=== PATIENT | female | born 1945 | race Caucasian/White ===

== ENCOUNTER → 2020-07-16 12:16 | Outpatient (CLI) | payer OTHER, SELFPAY ==
--- NOTE | ~2020-07-16 | MM_ITS ---
EXAMINATION: MM screening leonides BI w keith HISTORY: Screening mammogram TECHNIQUE: Craniocaudal and mediolateral oblique 3-D tomosynthesis images were obtained and synthetic 2-D images were generated. CAD analysis was submitted and interpreted. COMPARISON: 11/25/2018, 08/11/2016, 01/03/2014 bilateral digital screening mammogram examinations BREAST PARENCHYMAL COMPOSITION: There are scattered areas of fibroglandular density. FINDINGS: There is no evidence of suspicious mass, calcification, or architectural distortion to sugg est malignancy in either breast. There has been no suspicious interval change. IMPRESSION: 1. No mammographic evidence of malignancy. 2. Recommend routine screening mammography in one year. BI-RADS Category 1: Negative Reviewed, dictated and finalized at location A.
--- NOTE | ~2020-07-16 | DEXA_ITS ---
Bone Density Report Name: Mandi De La Torre Age: 74 Sex: Female Ethnicity: White Date of : 1945 Indication: postmenopausal; screening for osteoporosis; Referring Provider: Roslyn Polk Study: Bone densitometry was performed. Exam Date: July 16, 2020 Accession number: [id number] Bone Density: Region BMD T-score Z-score Classification AP Spine (L1-L4) 0.793 -2.3 0.2 Osteopenia Femoral Neck (Left) 0.530 -2.9 -0.7 Osteoporosis Total Hip (Left) 0.638 -2.5 -0.6 Osteoporosis Femoral Neck (Right) 0.548 -2.7 -0.6 Osteoporosis Total Hip (Right) 0.594 -2.9 -1.0 Osteoporosis Total Hip Mean 0.616 -2.7 -0.8 Osteoporosis World Health Organization criteria for BMD impression classify patients as: Normal (T-score at or above -1.0), Osteopenia (T-score between -1.0 and -2.5), or Osteoporosis (T-score at or below -2.5). 10-year Fracture Risk: FRAX not reported because: Some T-score for Spine Total or Hip Total or Femoral Neck at or below -2.5 Clinical Information Provided by Patient: Has used the following medications: Vitamin D, Calcium Patient maximum height was 64 Menopause Age: 50 No regular weight bearing exercise Does not regularly consume dairy products Drinks caffeinated beverages Onset of menses at age 12 Number of children 2 Impression: The patient has osteoporosis, based on the Right Total Hip T-score. Discussion: INCREASED RISK OF FRACTURE. BONE DENSITY IS UNDESIRABLY LOW AT ONE OR MORE SKELETAL SITES, CONSISTENT WITH POSTMENOPAUSAL OSTEOPOROSIS. This patient's lowest T-score meets the World Health Organization's (WHO) criteria for osteoporosis at one or more sites (T-score -2.5 or below). In untreated patients, the risk of osteoporotic fracture increases approximately two-fold for each 1.0 SD decrease in T-score. Low bone density is not the only risk factor for fracture; also consider factors such as patient's age, frailty or poor health, risk of falling, risk of injury, previous osteoporotic fracture, family history of osteoporosis, cigarette smoking, low body weight, etc. Not everyone with low bone mineral density has osteoporosis; osteomalacia and other metabolic bone disorders should also be considered. Patients who have osteoporosis should be evaluated for specific diseases and conditions (secondary causes) that may cause or contribute to bone loss. The [place] [employer]ocrinologists (AACE) and National Osteoporosis Foundation (NOF) recommend pharmacologic intervention for all postmenopausal women whose T-score is in this range. The patient should follow a healthful lifestyle (good nutrition with adequate calcium and vitamin D, and appropriate weight-bearing exercise). Follow-Up: Consider a repeat BMD and Vertebral Fracture Assessment (VFA) exam in 2 years or sooner if medica
== END ==
PROVIDERS: PCP Family Medicine; Visit Provider Physician Assistant
DX: Z12.31 Encounter for screening mammogram for malignant neoplasm of breast (principal); Z78.0 Asymptomatic menopausal state; M85.88 Other specified disorders of bone density and structure, other site; M81.0 Age-related osteoporosis without current pathological fracture
CPT/HCPCS: 77063; 77067; 77080

== ENCOUNTER 2021-08-08 00:51 | Day surgery (SDC) | payer OTHER, SELFPAY ==
[2021-07-12 13:35] VITALS: BMI 25.0
--- NOTE | 2021-08-08 09:03 | P.PNAN_ITS ---
Anes - Initial Pre Proc Eval Procedure: Operation Date: 08/08/21 13:15 Proposed Procedures p Screening Colonoscopy - Darrius Crocker MD Date/Time: 08/08/21 09:03 Surgeon: Darrius Crocker MD Pre Op Diagnosis: hx of colon polyps, neoplasm screening Patient Data Age: 75 Gender: F Height: 1.63 m Weight: 66 kg Allergies Allergy/AdvReac Type Severity Reaction Status Date / Time cephalexin Allergy Severe rash Verified 08/08/21 11:59 acetaminophen AdvReac Mild Nausea Verified 08/08/21 11:59 codeine AdvReac Mild Nausea Verified 08/08/21 11:59 Home Medications Medication Instructions Recorded Confirmed Type alprazolam 0.5 mg tablet 0.5 mg PO TID PRN #90 tablet 07/23/20 08/08/21 Rx cetirizine 10 mg tablet 10 mg PO DAILY 07/23/20 08/08/21 History fluticasone propionate 50 See Rx Instructions .ROUTE 12/24/20 08/08/21 Rx mcg/actuation nasal .COMPLEX #48 ml spray,suspension levothyroxine 75 mcg tablet See Rx Instructions PO DAILY #102 04/23/21 08/08/21 Rx tablet pantoprazole 40 mg tablet,delayed See Rx Instructions .ROUTE 06/07/21 08/08/21 Rx release .COMPLEX #90 tablet docusate sodium [Dulcolax Stool 100 mg PO DAILY 07/12/21 08/08/21 History Softener (dss)] olopatadine 0.2 % eye drops 1 drp EACH EYE DAILY #2.5 ml 07/17/21 08/08/21 Rx losartan 25 mg PO DAILY 07/31/21 08/08/21 History hydroxyzine HCl 25 mg tablet 25 mg PO BID PRN #20 tablet 08/05/21 08/08/21 Rx Patient hx anesthesia problems: none Family hx anesthesia problems: none Results Review: All pre-operative results and documents have been reviewed as part of the pre-operative evaluation. [facility] Past Medical History Medical History (Updated 08/08/21 @ 09:04 by Pietro Huff MD) Allergic rhinitis Anxiety MARY KAY (generalized anxiety disorder) Hypertension Hypothyroidism TIA (transient ischemic attack) Family History Family History Sibling Family history of malignant neoplasm of breast in first degree relative, Onset Age: 60 Social History Social History Social History: Smoking status: Never smoker Second hand tobacco smoke exposure: No Alcohol intake: never Substance use: never Substance use type: does not use Living arrangements: with family Additional living arrangements comments: lives with son and grandson Gender identity (if verbalized by the patient): Female Sexual Orientation (if Verbalized by the Patient): Straight or Heterosexual Spiritual care concerns: No Anes - Eval Final PreProcedure Day of Procedure 08/08/21 09:03 Patient weight: normal Heart: regular rate and rhythm Lungs: clear to auscultation and normal air movement Airway: Mallampati scale class II Neurological: alert and oriented Last oral intake: >/= 8 hours ASA classification: II Emergent: no Anesthetic plan: proceed Anesthesia type and monitoring: general GIVS Results Review: All pre-operative results and documents have been reviewed as part of the pre-operative evaluation. Informed Consent: The patient's anesthetic plan and its attendant risks and benefits were discussed with the patient/family/POA. Questions were solicited and answers provided to the satisfaction of the patient/fami
[2021-08-08 12:00] VITALS: BP 142/72; PULSE 85; RESP 15; TEMP 36.9; O2SAT 100
[2021-08-08] MEDS: LACTATED RINGERS 1,000 ML 150 ML IV CONT (12:08)
--- NOTE | 2021-08-08 12:40 | PM.HPGS ---
History of Present Illness History of Present Illness Consent: Risks, benefits, and alternatives have been discussed and questions answered. Patient agrees to proceed with procedure. Chief complaint: hx of colon polyps, neoplasm screening Narrative: Mandi De La Torre is a 75 year old female Referred for colon cancer screening. She had a polyp removed about 5 years ago. She is not having any acute problems now. Review of Systems Review of Systems: All systems reviewed & are unremarkable except as noted in HPI and below PMFSH Past Medical History Medical History Allergic rhinitis Anxiety MARY KAY (generalized anxiety disorder) Hypertension Hypothyroidism TIA (transient ischemic attack) Family History Family History Sibling Family history of malignant neoplasm of breast in first degree relative, Onset Age: 60 Social History Social History Social History: Smoking status: Never smoker Second hand tobacco smoke exposure: No Alcohol intake: never Substance use: never Substance use type: does not use Living arrangements: with family Additional living arrangements comments: lives with son and grandson Gender identity (if verbalized by the patient): Female Sexual Orientation (if Verbalized by the Patient): Straight or Heterosexual Spiritual care concerns: No Meds Home Medications and Allergies Home Medications Medication Instructions Recorded Confirmed Type alprazolam 0.5 mg tablet 0.5 mg PO TID PRN #90 tablet 07/23/20 08/08/21 Rx cetirizine 10 mg tablet 10 mg PO DAILY 07/23/20 08/08/21 History fluticasone propionate 50 See Rx Instructions .ROUTE 12/24/20 08/08/21 Rx mcg/actuation nasal .COMPLEX #48 ml spray,suspension levothyroxine 75 mcg tablet See Rx Instructions PO DAILY #102 04/23/21 08/08/21 Rx tablet pantoprazole 40 mg tablet,delayed See Rx Instructions .ROUTE 06/07/21 08/08/21 Rx release .COMPLEX #90 tablet docusate sodium [Dulcolax Stool 100 mg PO DAILY 07/12/21 08/08/21 History Softener (dss)] olopatadine 0.2 % eye drops 1 drp EACH EYE DAILY #2.5 ml 07/17/21 08/08/21 Rx losartan 25 mg PO DAILY 07/31/21 08/08/21 History hydroxyzine HCl 25 mg tablet 25 mg PO BID PRN #20 tablet 08/05/21 08/08/21 Rx Allergies Allergy/AdvReac Type Severity Reaction Status Date / Time cephalexin Allergy Severe rash Verified 08/08/21 11:59 acetaminophen AdvReac Mild Nausea Verified 08/08/21 11:59 codeine AdvReac Mild Nausea Verified 08/08/21 11:59 Vital Signs Vital Signs - 24 hr 08/08/21 12:00 Temperature 36.9 C Pulse Rate 85 Respiratory Rate 15 Blood Pressure 142/72 H Pulse Oximetry 100 Exam Const: General: alert Orientation/consciousness: patient oriented x3 Resp: Auscultation: clear to auscultation bilaterally Cardio: Rhythm: regular rhythm GI: GI Palp: Yes Soft to palpation and No Tenderness to palpation present (GI) Neuro: General: patient oriented x3 Assessment and Plan Assessment and plan (1) Colon cancer screening: Code(s): Z12.11 - Encounter for screening for malignant neoplasm of colon Status: Acute Assessment and Plan: Colonoscopy with possible biopsy or polypectomy or cautery or injection of substances.
[2021-08-08 13:22] VITALS: BP 117/94; PULSE 91; RESP 25; O2SAT 100
[2021-08-08 13:32] VITALS: BP 124/69; PULSE 80; RESP 18; O2SAT 99
[2021-08-08 13:42] VITALS: BP 141/72; PULSE 74; RESP 20; O2SAT 99
--- NOTE | 2021-08-08 14:08 | SUR.PHASEII ---
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
== END 2021-08-08 14:05 | disposition home or self-care (01) ==
PROVIDERS: PCP Family Medicine; Visit Provider Internal Medicine Gastroenterology
PROC: 0DJD8ZZ Inspection of Lower Intestinal Tract, Via Natural or Artificial Opening Endoscopic (ICD-10-PCS; CPT 45378; principal; 2021-08-08 13:15)
DX: Z12.11 Encounter for screening for malignant neoplasm of colon (principal); K57.30 Diverticulosis of large intestine without perforation or abscess without bleeding; Z86.010 Personal history of colon polyps; I10 Essential (primary) hypertension; E03.9 Hypothyroidism, unspecified; F41.1 Generalized anxiety disorder; Z86.73 Personal history of transient ischemic attack (TIA), and cerebral infarction without residual deficits
CPT/HCPCS: G0105; J2704; J7120

== ENCOUNTER → 2022-02-18 09:47 | Outpatient (CLI) | payer OTHER, SELFPAY ==
--- NOTE | ~2022-02-18 | XR_ITS ---
XR knee RT min 4V DATE: 02/18/2022 10:01 INDICATION: Lateral knee pain for one month. No injury. TECHNIQUE: 4 views COMPARISON: None FINDINGS: There is osteopenia. Mild superior pole patellar enthesopathy at quadriceps tendon insertion. Slight periarticular spurring at the patellofemoral joint and medial tibial plateau. Medial and later al compartment joint spaces and patellofemoral joint spaces appear relatively preserved. No fracture or dislocation, periosteal reaction or bone destruction, radiopaque intra-articular loose body or chondrocalcinosis is detected. IMPRESSION: Osteopenia Mild osteoarthritis Reviewed, dictated and finalized at location B. [employer]
== END ==
PROVIDERS: PCP Family Medicine; Visit Provider Nurse Practitioner Gerontology
DX: M25.561 Pain in right knee (principal); M17.11 Unilateral primary osteoarthritis, right knee; M85.861 Other specified disorders of bone density and structure, right lower leg
CPT/HCPCS: 73564

== ENCOUNTER 2023-10-07 11:31 | Outpatient (CLI) | payer OTHER, SELFPAY ==
--- NOTE | ~2023-10-07 | MM_ITS ---
EXAMINATION: MM screening [place]ides BI w keith HISTORY: Screening TECHNIQUE: Craniocaudal and mediolateral oblique 3-D tomosynthesis images were obtained and synthetic 2-D images were generated. CAD analysis was submitted and interpreted. COMPARISON: Comparison to multiple prior studies sequentially, with oldest reviewed study dated 12/21. BREAST PARENCHYMAL COMPOSITION: Not dense: There are scattered areas of fibroglandular density. FINDINGS: There is no evidence of suspicious mass, calcification, or architectural distortion to sugg est malignancy in either breast. There has been no suspicious interval change. IMPRESSION: 1. No mammographic evidence of malignancy. 2. Recommend routine screening mammography in one year. BI-RADS Category 1: Negative Reviewed, dictated and finalized at location B.
== END 2023-10-07 11:32 ==
LOC: MICIMG 11:33
PROVIDERS: PCP Family Medicine; Visit Provider Family Medicine
DX: Z12.31 Encounter for screening mammogram for malignant neoplasm of breast (principal)
CPT/HCPCS: 77063; 77067